=== PATIENT | female | born 1970 | race Caucasian/White ===

== ENCOUNTER 2024-08-12 13:53 | Emergency (ER) | payer OTHER ==
[~2024-08-12] VITALS: Ht 172.7 cm; Wt 80.5 kg
[2024-08-12 14:23] LABS: BASOPHILS 0.8 % (0-2); EOSINOPHILS 1.4 % (0-6); HEMATOCRIT 41.4 % (35.0-50.0); HEMOGLOBIN 14.5 g/dL (12.0-18.0); LYMPHOCYTES 26.7 % (24-44); MCH 33.4 (27-36); MCV 95.3 fl (81-99); MONOCYTES 7.8 % (0-12); NEUTROPHILS 63.3 % (39-80); PLATELET COUNT 280 K/uL (140-440); RBC 4.34 M/ul (4.3-5.7)
[2024-08-12] MEDS ORDERED: SODIUM CHLORIDE 0.9% 1,000 ML IV PRN (14:30)
[2024-08-12 14:34] LABS: ACETAMINOPHEN 0 ug/mL (10-30); ALBUMIN 3.6 g/dL (3.4-5.0); ALCOHOL, MEDICAL <3 ng/dL (<3); ALKALINE PHOSPHATASE 106 U/L (46-116); ALT (SGPT) 30 U/L (14-59); ANION GAP 12.2 (7-21); AST (SGOT) 34 U/L (15-37); BILIRUBIN, TOTAL 0.9 ng/dL (0.2-1.0); BUN/CREATININE RATIO 6.59 (6.0-28.6); CALCIUM 9.4 mg/dL (8.5-10.1); CARBON DIOXIDE 30 mmol/L (21-32); CHLORIDE 102 mmol/L (98-107); CREATININE, SERUM 0.91 mg/dL (0.55-1.02); GLOMERULAR FILTRATION RATE,EST 50 mL/min (>60); POTASSIUM 3.2 mmol/L (3.5-5.1); PROTEIN, TOTAL 7.6 g/dL (6.4-8.2); SALICYLATE 4.9 mg/dL (2.8-20.0); UREA NITROGEN 6 mg/dL (7-18)
[2024-08-12 14:35] LABS: INR 0.96 (0.80-1.30); PARTIAL THROMBOPLASTIN TIME 27.4 Sec (22.9-41.3); PROTIME 12.1 Sec (11.2-14.2)
[2024-08-12 14:56] LABS: TSH, 3RD GENERATION 4.874 uIU/mL (0.358-3.740)
[2024-08-12 17:30] VITALS: BP 168/96
== END 2024-08-12 17:30 | disposition home or self-care (01) ==
LOC: ED 13:53 → EDBD 13:54 → ED 17:30
PROVIDERS: Emergency Medicine
DX: F29 Unspecified psychosis not due to a substance or known physiological condition (principal)
CPT/HCPCS: 36415; 70450; 80053; 80307; 82140; 84443; 85025; 85610; 85730; 99285-25; G0480

== ENCOUNTER 2024-11-07 14:28 | Emergency (ER) | payer OTHER ==
[~2024-11-07] VITALS: Ht 172.7 cm; Wt 79.4 kg
[2024-11-07 14:51] LABS: BILIRUBIN, URINE NEGATIVE (negative); BLOOD/HGB, URINE NEGATIVE (Negative); KETONE, URINE NEGATIVE (Negative); LEUK ESTERASE, URINE TRACE (negative); NITRITE, URINE NEGATIVE (negative)
[2024-11-07 14:59] LABS: BACTERIA, URINE RARE /hpf (negative); CASTS, URINE NONE SEEN \\lpf; COLLECTION TYPE, URINE CLEAN CATCH; CRYSTALS, URINE NONE SEEN (0-1+); EPITHELIAL CELLS, URINE SQUAMOUS 2+ /lpf (0-1+); RED BLOOD CELLS, URINE 0-1 /hpf (0-5); REFLEX CULTURE, URINE No (No)
[2024-11-07 15:04] LABS: BASOPHILS 0.7 % (0-2); HEMATOCRIT 37.6 % (35.0-50.0); HEMOGLOBIN 12.9 g/dL (12.0-18.0); LYMPHOCYTES 31.8 % (24-44); MCH 32.1 (27-36); MCHC 34.3 g/dl (30-36); MCV 93.5 fl (81-99); MONOCYTES 7.4 % (0-12); NEUTROPHILS 59.1 % (39-80); PLATELET COUNT 191 K/uL (140-440); RBC 4.02 M/ul (4.3-5.7); RDW 12.6 (10.5-15.0)
[2024-11-07 15:08] LABS: BARBITURATES, URINE NEGATIVE (NEGATIVE); BENZODIAZEPINE, URINE NEGATIVE (NEGATIVE); BUPRENORPHINE, URINE NEGATIVE (NEGATIVE); CANNABINOID, URINE NEGATIVE (NEGATIVE); COCAINE, URINE NEGATIVE (NEGATIVE); ECSTASY, URINE NEGATIVE (NEGATIVE); FENTANYL, URINE NEGATIVE (NEGATIVE); METHADONE, URINE NEGATIVE (NEGATIVE); OPIATES, URINE NEGATIVE (NEGATIVE); OXYCODONE, URINE NEGATIVE (NEGATIVE); PHENCYCLIDINE, URINE NEGATIVE (NEGATIVE)
[2024-11-07 15:21] LABS: AMPHETAMINES, URINE NEGATIVE (NEGATIVE)
[2024-11-07 15:27] LABS: ACETAMINOPHEN 0 ug/mL (10-30); ALBUMIN 3.5 g/dL (3.4-5.0); ALBUMIN/GLOBULIN RATIO 1.06 (1.1-2.4); ALCOHOL, MEDICAL <3 ng/dL (<3); ALKALINE PHOSPHATASE 99 U/L (46-116); ALT (SGPT) 20 U/L (14-59); ANION GAP 10.2 (7-21); AST (SGOT) 13 U/L (15-37); BILIRUBIN, TOTAL 0.6 ng/dL (0.2-1.0); BUN/CREATININE RATIO 9.64 (6.0-28.6); CALCIUM 9.2 mg/dL (8.5-10.1); CARBON DIOXIDE 31 mmol/L (21-32); CHLORIDE 104 mmol/L (98-107); CREATININE, SERUM 1.14 mg/dL (0.55-1.02); GLOMERULAR FILTRATION RATE,EST 58 mL/min (>60); POTASSIUM 4.2 mmol/L (3.5-5.1); PROTEIN, TOTAL 6.8 g/dL (6.4-8.2); SALICYLATE 0.5 mg/dL (2.8-20.0); TSH, 3RD GENERATION 3.342 uIU/mL (0.358-3.740); UREA NITROGEN 11 mg/dL (7-18)
[2024-11-07] MEDS ORDERED: OLANZapine 10 MG TAB PO SCH (16:14)
[2024-11-07 18:53] LABS: CORONAVIRUS COVID-19 AG NEGATIVE (NEGATIVE)
[2024-11-08] MEDS ORDERED: OLANZapine 10 MG TABDIS PO ONE (08:45)
[2024-11-08] MEDS ORDERED: LORazepam 1 MG TAB PO ONE (08:45)
[2024-11-08] MEDS ORDERED: HALOPERIDOL LACTATE 5 MG/ML VIAL IM ONE (09:00)
[2024-11-08] MEDS ORDERED: LORazepam 2 MG/ML VIAL IM ONE (09:00)
[2024-11-08] MEDS ORDERED: diphenhydrAMINE HCL 50 MG/ML VIAL IM ONE (09:00)
--- NOTE | 2024-11-08 21:53 | EKG ---
[facility] [address] [facility] [place] [address] Signed Normal sinus rhythm Minimal voltage criteria for LVH, may be normal variant ( R in aVL ) Borderline ECG No previous ECGs available Confirmed by Cesario Blanco DO ([id number]) on 11/08/2024 9:53:16 PM Electronically Signed By: CESARIO BLANCO DO 11/08/24 2153 PATIENT NAME: KEVINDANTE Electrocardiogram DATE OF : 72 PHYSICIAN: CESARIO BLANCO DO REPORT #: [id number] REPORT IS CONFIDENTIAL AND NOT TO BE RELEASED WITHOUT AUTHORIZATION
[2024-11-09] MEDS ORDERED: LORazepam 1 MG TAB PO ONE (18:45)
[2024-11-09] MEDS ORDERED: OLANZapine 10 MG TABDIS PO ONE (18:45)
[2024-11-09] MEDS ORDERED: LORazepam 2 MG/ML VIAL IM ONE (20:00)
[2024-11-09] MEDS ORDERED: diphenhydrAMINE HCL 50 MG/ML VIAL IM ONE (20:00)
[2024-11-09] MEDS ORDERED: HALOPERIDOL LACTATE 5 MG/ML VIAL IM ONE (20:00)
[2024-11-10] MEDS ORDERED: OLANZapine 10 MG TAB PO SCH ×2 (09:00→17:11)
[2024-11-10] MEDS ORDERED: LORazepam 1 MG TAB PO ONE (12:45)
[2024-11-11 11:15] VITALS: BP 130/96
== END 2024-11-11 11:17 ==
LOC: ED 14:28
PROVIDERS: Emergency Medicine
DX: F20.9 Schizophrenia, unspecified (principal)
CPT/HCPCS: 36415; 80053; 80307; 81001; 84443; 84703; 85025; 96372; 99285-25; A9270; A9270-GY; G0480; J1200; J1630; J2060